=== PATIENT | male | born 1960 | race Caucasian/White ===

== ENCOUNTER 2023-12-24 11:39 | Emergency (ER) | payer OTHER ==
[2023-12-24] MEDS: Lidocaine 1% 30 ML SDV INFILT ONE (12:07)
[2023-12-24] MEDS ORDERED: Bacitracin Oint 1 GM U/D Packet ONE (12:11)
== END 2023-12-24 12:34 | disposition home or self-care (01) ==
LOC: DL.ED 11:39
DX: S61.212A Laceration without foreign body of right middle finger without damage to nail, initial encounter (principal); W23.1XXA Caught, crushed, jammed, or pinched between stationary objects, initial encounter
CPT/HCPCS: 12001; 99282; J3490